=== PATIENT | male | born 1975 | race Caucasian/White ===

== ENCOUNTER 2018-01-20 02:33 | Emergency (ER) | payer MEDICAID, SELFPAY ==
[2018-01-20 02:40] VITALS: BP 129/87; PULSE 101; RESP 18; TEMP 36.5; O2SAT 98
--- NOTE | 2018-01-20 03:33 | W.ED.GENAD ---
Discharge Plan Disposition Patient Disposition: HOME Discharge Details Chief Complaint: GenMedical Clinical Impression: Tongue inflammation Primary Care Provider: Shane Colin ED Provider: Kb Montoya Home Meds and New Rx's Prescriptions: No Action No Known Home Meds RF: 0 Discharge Instructions Additional Instructions: Please use ibuprofen or tylenol for pain. Please contact your primary care physician to arrange follow-up. Return to the ER for any worsening or new concerning symptoms. Referrals: Shane Colin [Primary Care Provider] - Medical Decision Making 42-year-old male here with mild tongue inflammation. No significant swelling. Airway intact. Patient requesting tramadol. I advised that this was not appropriate for current condition. Plan to continue ibuprofen. I will also give him Tylenol. Patient notes no allergy to Tylenol. We will also provide viscous lidocaine swish and spit. HPI General Date/Time Provider Initiated Documentation: 01/20/18 02:44. Limitations to Documentation: no limitations. Information obtained by: patient. HPI Narrative: 42-year-old male presents with chief complaint of tongue inflammation. He notes that over the past 2 days he has had discomfort of his tongue that feels like it is cut. He specifically notes trouble swallowing because of pain. Patient has had no known injury. Patient has taken ibuprofen for this. Patient is requesting additional analgesia and specifically tramadol. Related Data Home Medications Medication Instructions Recorded Confirmed Unknown [No Known Home Meds] 01/20/18 01/20/18 Allergies Allergy/AdvReac Type Severity Reaction Status Date / Time acetaminophen [From Percocet] Allergy Verified 06/09/17 22:06 oxycodone HCl [From Percocet] Allergy Verified 06/09/17 22:06 General Stated Complaint: GenMedical MALIA: 4 Review of Systems Constitutional Denies fever(s) ENT Reports as per HPI, Denies change in voice, Denies sore throat and Denies throat swelling Allergic/Immunologic Denies throat swelling [facility] Social History Smoking/Tobacco Use Status: Current every day Exam Const General: cooperative HENMT Mouth: abnormal tongue (mild redness with prominent papillae) Throat: posterior oropharynx normal Neck Neck: trachea midline, supple and no lymphadenopathy noted Resp Effort & Inspection: normal respiratory effort Auscultation: clear to auscultation bilaterally Cardio Rate: regular rate Rhythm: regular rhythm Course Vital Signs Temperature 36.5 C 01/20/18 02:40 Pulse 101 H 01/20/18 02:40 Respiratory Rate 18 01/20/18 02:40 Blood Pressure 129/87 01/20/18 02:40 Pulse Oximetry 98 01/20/18 02:40 Temperature 36.5 C 01/20/18 02:40 Temperature Source Temporal Artery Scan 01/20/18 02:40 Pulse 101 H 01/20/18 02:40 Respiratory Rate 18 01/20/18 02:40 Respiratory Effort 01/20/18 02:40 Blood Pressure 129/87 01/20/18 02:40 Blood Pressure Position Sitting 01/20/18 02:40 Pulse Oximetry 98 01/20/18 02:40 Oxygen Delivery Method Room Air 01/20/18 02:40 Oxygen Flow Rate 0 01/20/18 02:40
[2018-01-20] MEDS: Acetaminophen 325 MG TAB 650 MG PO ×2 (03:45→03:46)
--- NOTE | 2018-01-20 03:46 | ED.GENADUL_ITS ---
Discharge Plan Disposition Patient Disposition: HOME Discharge Details Chief Complaint: GenMedical Clinical Impression: Tongue inflammation Primary Care Provider: Shane Colin ED Provider: Kb Montoya Home Meds and New Rx's Prescriptions: No Action No Known Home Meds RF: 0 Discharge Instructions Additional Instructions: Please use ibuprofen or tylenol for pain. Please contact your primary care physician to arrange follow-up. Return to the ER for any worsening or new concerning symptoms. Referrals: Shane Colin [Primary Care Provider] - Medical Decision Making 42-year-old male here with mild tongue inflammation. No significant swelling. Airway intact. Patient requesting tramadol. I advised that this was not appropriate for current condition. Plan to continue ibuprofen. I will also give him Tylenol. Patient notes no allergy to Tylenol. We will also provide viscous lidocaine swish and spit. HPI General Date/Time Provider Initiated Documentation: 01/20/18 02:44 . Limitations to Documentation: no limitations . Information obtained by: patient . HPI Narrative: 42-year-old male presents with chief complaint of tongue inflammation. He notes that over the past 2 days he has had discomfort of his tongue that feels like it is cut. He specifically notes trouble swallowing because of pain. Patient has had no known injury. Patient has taken ibuprofen for this. Patient is requesting additional analgesia and specifically tramadol. Related Data Home Medications Medication Instructions Recorded Confirmed Unknown [No Known Home Meds] 01/20/18 01/20/18 Allergies Allergy/AdvReac Type Severity Reaction Status Date / Time acetaminophen [From Percocet] Allergy Verified 06/09/17 22:06 oxycodone HCl [From Percocet] Allergy Verified 06/09/17 22:06 General Stated Complaint: GenMedical MALIA: 4 Review of Systems Constitutional Denies fever(s) ENT Reports as per HPI, Denies change in voice, Denies sore throat and Denies throat swelling Allergic/Immunologic Denies throat swelling [facility] Social History Smoking/Tobacco Use Status: Current every day Exam Const General: cooperative HENMT Mouth: abnormal tongue (mild redness with prominent papillae) Throat: posterior oropharynx normal Neck Neck: trachea midline, supple and no lymphadenopathy noted Resp Effort & Inspection: normal respiratory effort Auscultation: clear to auscultation bilaterally Cardio Rate: regular rate Rhythm: regular rhythm Course Vital Signs Temperature 36.5 C 01/20/18 02:40 Pulse 101 H 01/20/18 02:40 Respiratory Rate 18 01/20/18 02:40 Blood Pressure 129/87 01/20/18 02:40 Pulse Oximetry 98 01/20/18 02:40 Temperature 36.5 C 01/20/18 02:40 Temperature Source Temporal Artery Scan 01/20/18 02:40 Pulse 101 H 01/20/18 02:40 Respiratory Rate 18 01/20/18 02:40 Respiratory Effort 01/20/18 02:40 Blood Pressure 129/87 01/20/18 02:40 Blood Pressure Position Sitting 01/20/18 02:40 Pulse Oximetry 98 01/20/18 02:40 Oxygen Delivery Method Room Air 01/20/18 02:40 Oxygen Flow Rate 0 01/20/18 02:40
[2018-01-20] MEDS: Lidocaine 2% Viscous 15 ML CUP PO (03:47)
== END 2018-01-20 03:57 | disposition home or self-care (01) ==
LOC: ER 03:57
PROVIDERS: Emergency Provider Student in an Organized Health Care Education/Training Program; PCP Family Medicine
DX: K14.6 Glossodynia (principal); R13.10 Dysphagia, unspecified
CPT/HCPCS: 99282

== ENCOUNTER 2019-03-19 11:05 | Emergency (ER) | payer MEDICAID, SELFPAY ==
--- NOTE | 2019-03-19 11:08 | ED.GENADUL_ITS ---
Discharge Plan Disposition Patient Disposition: HOME Condition: Good Discharge Details Chief Complaint: Orthopedic Clinical Impression: Acute pain of left shoulder, Biceps tendinitis Primary Care Provider: Shane Colin ED Provider: Gracie Oconnell Home Meds and New Rx's Prescriptions: New diclofenac potassium 50 mg tablet 50 mg PO TID PRN (Reason: pain) Qty: 15 RF: 0 Discharge Instructions Instructions: Tendinitis (ED), Shoulder Pain (ED) Additional Instructions: Encourage hydration. Use the diclofenac as prescribed to help with your pain. Please not take ibuprofen or other anti-inflammatory will take this medication. You may augment this with Tylenol, do not exceed 4000 mg of Tylenol daily. You may continue to use the sling while pain persists but take the arm out of the sling at least 5-6 times daily to use perform the passive range of motion exercises as discussed. Encourage rest, ice, elevation. You have an appointment with your primary care physician on March 31 at 9:30 AM for reevaluation. If you are unable to make this appointment please call to reschedule. Physical therapy referral is attached, please see numbers for local providers and contact to schedule follow-up appointment. If you develop fever/chills, increased pain or other new/worsening symptoms please seek care urgently once again. Stand Alone Forms: Physical Therapy Referral, Work Release Referrals: Shane Colin [Primary Care Provider] - 03/31/19 9:30 am Discharge Data Discharge Date/Time-TO BE ENTERED AT DEPARTURE: 03/19/19 12:07 Medical Decision Making Patient is a 43 year old RHD male presenting today with c/c of left shoulder pain. States that yesterday he was lifting a water heater and developed anterior superior left shoulder pain shortly after. Denies fall or abrupt trauma to the shoulder. 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 He denies any numbness or tingling. Denies any pain that radiates from the arm. Denies any pain in the elbow, wrist, hand. Denies any chest pain, shortness of breath. No fevers or chills. On exam, patient is moving his left arm slowly. In particular, he has discomfort with forward elevation and is only able to forward elevate to approximately 60 degrees. External and internal rotation are intact. Pain is maximal over the biceps tendon, no Dixon deformity is noted. Also has pain with palpation of the AC joint although I note no step-off or blottable mobility of the left clavicle. Will obtain x-ray. He has taken Tylenol and ibuprofen today. Will place a Lidoderm patch over the area. FINDINGS: No fracture or dislocation is seen. There is mild spurring at the AC joint and inferior glenoid. IMPRESSION: Mild degenerative changes. Discussed these findings with the patient. Encourage gentle range of motion to help her events of his capsulitis. Passive range of motion exercises were demonstrated for the patient. Encouraged to continue with Tylenol and/or ibuprofen as needed for discomfort. Patient is requesting sling to help with acute discomfort but he will remove this multiple times a day again to work on range of motion. Pain is maximal over the biceps tendon. I advised this most consistent with biceps tendinitis. I encouraged that he try to hold off on any heavy lifting as this may increase his discomfort. Patient was unclear if he had current primary care, I did contact a local primary care office where he was seen last was able to make an appointment for him for reevaluation. He was given strict return precautions. Also refer the patient to physical therapy to help with discomfort. All questions concerns were addressed and he is in agreement this plan. HPI General Mode of arrival: ambulatory . Date/Time Provider Initiated Documentation: 03/19/19 11:08 . Limitations to Documentation: no limitations . Information obtained by: patient and RN notes reviewed . History of Present Illness 43 year old M presents to the emergency department with the chief complaint of left shoulder pain, described as moderate, with intensity rated at 7. Quality is described as aching, and is localized to the left and upper extremity. Patient reports no radiation. Patient started experiencing this day(s) (1) and it has been constant. Immobilization improves symptom(s), Movement worsens symptoms . Patient notes no other symptoms.. Patient did receive the following treatments prior to arrival, NSAID and other (tylenol) Related Data Home Medications Medication Instructions Recorded Confirmed diclofenac potassium 50 mg PO TID PRN #15 tab 03/19/19 Previous Rx's Medication Instructions Recorded diclofenac potassium 50 mg PO TID PRN #15 tab 03/19/19 Allergies Allergy/AdvReac Type Severity Reaction Status Date / Time acetaminophen [From Percocet] Allergy Verified 01/20/18 04:24 oxycodone HCl [From Percocet] Allergy Verified 01/20/18 04:24 General MALIA: 4 Review of Systems Constitutional Constitutional: Reports as per HPI, Denies chills, Denies fever(s), Denies headache(s) and Denies weakness ENT Ears, Nose, Mouth, and Throat: Denies headache(s) Cardiovascular Cardiovascular: Reports as per HPI Respiratory Respiratory: Reports as per HPI and Denies cough Musculoskeletal Musculoskeletal: Reports as per HPI and Denies tingling Integumentary/Breasts Skin/Breast: Reports as per HPI, Denies rash and Denies wounds Neurologic Neurologic: Reports as per HPI, Denies headache(s), Denies tingling, Denies paresthesias and Denies weakness [facility] Social History Smoking/Tobacco Use Status: Current every day Alcohol Intake: never Drug use: Never Substance use type: does not use Do you feel safe at home: Yes Do you feel safe in your relationship?: Yes Exam Const General: cooperative, healthy appearing, comfortable, no acute distress, well developed and well groomed Nutritional Appearance: average body habitus and well nourished Orientation: alert and awake Resp Effort & Inspection: normal respiratory effort, able to speak in complete sentences and no respiratory distress Cardio Rate: regular rate Rhythm: regular rhythm Skin General skin exam: no rashes or lesions noted Lesions: no lesions Rashes: no rashes Trauma: no lacerations or abrasions Neuro General: alert and awake Cognition: normal cognition Speech: speech normal Gait: normal gait Motor: muscle tone normal throughout Sensory Exam: no sensory deficits noted Extrem General: normal to inspection, abnormal ROM, normal capillary refill, no joint enlargement and normal gait Left upper extremity: normal to inspection, normal capillary refill, no joint enlargement, shoulder/upper arm Details: inspection abnormal, tenderness Location: of the A-C joint and over the biceps tendon, axillary nerve sensory function normal and abnormal ROM (FE to 60*, full IR and ER); no swelling, ROM limited, no abrasions, no lacerations, no ecchymosis, no crepitus, no foreign bodies, no penetrating wound, no deformity and no unsual warmth, elbow/forearm Details: normal to inspection, normal ROM and distal pulses intact; no tenderness, no swelling, no unusual warmth, no abrasions, no lacerations, no ecchymosis, no crepitus and no deformity, wrist Details: normal to inspection, normal ROM, normal vascular exam and radial pulse present; no tenderness and no swelling and hand Details: normal to inspection, normal capillary refill, neuromotor exam normal and neurosensory exam normal; ROM limited and no edema Psych Appearance: grossly normal and well kempt Mental Status: mental status grossly normal Speech and Movement: speech and movement normal
[2019-03-19 11:10] VITALS: BP 140/95; PULSE 98; RESP 16; TEMP 36.6; O2SAT 99
--- NOTE | 2019-03-19 11:21 | DI.RAD_ITS ---
EXAM: XR SHOULDER LT COMPLETE 2+V INDICATION: anterior pain after lifting. COMPARISON: LEFT RIBS TO INCLUDE CXR from 05/05/2014 TECHNIQUE: 2D digital imaging was performed. FINDINGS: No fracture or dislocation is seen. There is mild spurring at the AC joint and inferior glenoid. IMPRESSION: Mild degenerative changes.
[2019-03-19] MEDS: Lidocaine 5% Patch 1 PATCH TP (11:49)
== END 2019-03-19 12:07 | disposition home or self-care (01) ==
PROVIDERS: Emergency Provider Physician Assistant; PCP Family Medicine
DX: M75.22 Bicipital tendinitis, left shoulder (principal); M25.512 Pain in left shoulder; X50.0XXA Overexertion from strenuous movement or load, initial encounter
CPT/HCPCS: 99283; 73030; L3650

== ENCOUNTER 2021-11-15 14:52 | Emergency (ER) | payer MEDICAID, SELFPAY ==
[2021-11-15 15:03] VITALS: BP 134/80; PULSE 73; RESP 18; TEMP 36.7; O2SAT 97
--- NOTE | 2021-11-15 16:45 | RT.EKG_ITS ---
APPROVED REPORT Exam: Resting ECG Reason for Exam: bilat leg swelling Patient Location: E HR:67 bpm ECG Measurements Heart Rate 67 AXIS GA 170 P 18 QRSd 84 QRS 13 QT 386 T 25 QTc 408 Conclusion Sinus rhythm...normal P axis, V-rate 60- 99 sinus rhythm, normal axis, normal intervals, non ischemic
--- NOTE | 2021-11-15 16:45 | DI.RAD_ITS ---
Exam(s) XR CHEST 2V PA LATERAL EXAM: XR CHEST 2V PA LATERAL CLINICAL HISTORY: bilat leg swelling. TECHNIQUE: 2D digital imaging was performed. COMPARISON: CR LEFT RIBS TO INCLUDE CXR from 05/05/2014 FINDINGS: 2 views: Heart size is normal. The mediastinum is not widened. Lungs are clear. No infiltrates nor pleural effusions. IMPRESSION: No acute pulmonary findings. DATA REPOSITORY: RADIATION DOSE DELIVERED:
--- NOTE | 2021-11-15 16:47 | PDOC.ERCMPRO ---
- If Service Date Differs Date of service: 11/15/21 Time of Service: 16:48 Care Management Progress Note SBIRT screen: positive for nicotine. Pt states a desire to quit smoking and was provided with resources for tobacco cessation. Pt reports limited cannabis use before bed at night to help with sleep but reports no negative effects or dependency symptoms. We discussed his use in this context and Pt was encouraged to follow up with his PCP regarding medicinal marijauana use, as he states he would like to register as medical marijuana user. Pt reports no other substance use or mental health symptoms.
--- NOTE | 2021-11-15 17:01 | W.ED.GENAD ---
Discharge Plan Disposition Patient Disposition: HOME Condition: Stable Discharge Details Clinical Impression: Bilateral cellulitis of lower leg Primary Care Provider: Shane Colin ED Provider: Jaxon Smith Home Meds and New Rx's Prescriptions: New cephalexin 500 mg capsule 500 mg PO QID 10 Days Qty: 40 0RF Discharge Instructions Instructions: Cellulitis (ED) Additional Instructions: Keflex as directed. Rest, elevate, warm compresses every 2 hours for 20 minutes. I am setting you up for an outpatient ultrasound of your left lower extremity tomorrow to further evaluate for potential potential DVT. Please contact the radiology department in the morning to set this appointment up, he will sign into the ER after the ultrasound for the results. Please watch for new or worsening symptoms and return to the ER for any concerns. Please contact your primary care provider to make them aware of your ER visit and need for outpatient reevaluation. Discharge Data Discharge Date/Time-TO BE ENTERED AT DEPARTURE: 11/15/21 20:09 Medical Decision Making 46-year-old gentleman who denies any significant past medical history presents for several day history of bilateral lower lower leg swelling, pain, redness, left slightly worse than the right. Clinically this appears to be more of a cellulitis picture but given this is his first presentation, would like to rule out CHF, kidney failure, DVT, etc. Will obtain IV access, routine screening laboratory values over the patient up for an ultrasound tomorrow morning. Laboratory values are grossly unremarkable, no leukocytosis, troponin less than 50, BNP 91, renal function normal, electrolytes unremarkable. Discussed benign work-up with patient thus far. Will initiate oral Keflex therapy for ultrasound tomorrow. Standard discharge and return precautions were provided. Patient understands, is agreeable to this plan, and has no additional questions or concerns upon discharge. This documentation was generated using [employer] system, please disregard any oddities of phrase or misspellings. Medical Records Medical records reviewed: Yes I reviewed the patient's medical records. Imaging Data Radiologic Study: Attestation: I personally reviewed and interpreted this imaging study as follows: Imaging: X-Ray Radiologist's impression: PROCEDURE INFORMATION: Exam: XR Chest Exam date and time: 11/15/2021 6:49 PM Age: 46 years old Clinical indication: Other: Leg swelling, chest pain, SOB TECHNIQUE: Imaging protocol: Radiologic exam of the chest. Views: 2 views. COMPARISON: CR XR SHOULDER LT COMPLETE 2+V 03/19/2019 11:21 AM FINDINGS: Lungs: The lungs are clear without infiltrate or edema. Pleural spaces: No pleural effusion or pneumothorax. Heart/Mediastinum: The cardiac silhouette is normal in size. Bones/joints: The distal right clavicle is truncated. This suggests sequela of prior injury or prior surgery. No acute osseous abnormality. IMPRESSION: No acute findings Lab Data Lab results reviewed: Yes I reviewed the patient's lab results. Labs: Laboratory Tests Range/Units 11/15/21 11/15/21 17:14 17:14 WBC (4.4-10.8) 10^3/uL 10.13 RBC (4.36-5.78) 10^6/uL 5.04 Hgb (13.5-17.5) g/dL 15.3 Hct (40.0-50.0) % 43.4 MCV (80-95) fL 86 MCH (27.0-33.0) pg 30.4 MCHC (32.0-36.0) % 35.3 RDW (11.8-14.1) % 12.4 Plt Count (130-400) 10^3/uL 253 MPV (8.0-11.0) fL 9.4 Immature Gran % 0.4 Neutrophils % 61.1 Lymphocytes % 24.4 Monocytes % 9.8 Eosinophils % 3.3 Basophils % 1.0 Nucleated RBC % (0.0-0.3) % 0.0 Absolute Neutrophils (1.2-6.7) 10^3/uL 6.20 Absolute Lymphocytes (1.2-3.4) 10^3/uL 2.47 Absolute Monocytes (0.1-0.8) 10^3/uL 0.99 H Absolute Eosinophils (0.0-0.7) 10^3/uL 0.33 Absolute Basophils (0.0-0.2) 10^3/uL 0.10 Sodium (136-145) mmol/L 140 Potassium (3.5-5.1) mmol/L 3.9 Chloride (98-107) mmol/L 103 Carbon Dioxide (21.0-32.0) mmol/L 29.1 Anion Gap (3-11) mmol/L 7.9 BUN (7-18) mg/dL 13 Creatinine (0.70-1.30) mg/dL 0.9 Estimated GFR/1.73 m2 (mL/min/1.73m2) >= 60.00 Glucose (74-106) mg/dL 97 Calcium (8.5-10.1) mg/dL 8.6 Total Bilirubin (0.2-1.0) mg/dL 0.4 AST (15-37) U/L 30 ALT (16-63) U/L 26 Alkaline Phosphatase (46-116) U/L 122 H Troponin I (<or=60) ng/L < 50 NT-Pro-B Natriuret Pep (<300) pg/mL 91 Total Protein (6.4-8.2) g/dL 8.0 Albumin (3.4-5.0) g/dL 4.0 Lipase (73-393) U/L 26 ECG Data Attestation: I personally reviewed and interpreted this ECG (s) as follows: Interpretation: Sinus rhythm, ventricular rate of 67, no STEMI. HPI General Mode of arrival: ambulatory. Date/Time Provider Initiated Documentation: 11/15/21 16:25. Limitations to Documentation: no limitations. Information obtained by: patient. HPI Narrative: This is a 46-year-old gentleman, current smoker, denies significant past medical history, presenting for bilateral lower leg swelling that he states has been present for a couple of days but worse this morning, left slightly worse than right. Reports that his legs feel tight, mild to moderate discomfort, nothing makes it worse or better. He denies recent illness, trauma, chest pain, shortness of breath, symptoms like this previously. Denies history of DVT. He has not taken any medication for his symptoms. Related Data Home Medications Medication Instructions Recorded Confirmed cephalexin 500 mg capsule 500 mg PO QID 10 days #40 caps 11/15/21 11/16/21 Previous Rx's Medication Instructions Recorded cephalexin 500 mg capsule 500 mg PO QID 10 days #40 caps 11/15/21 Allergies Allergy/AdvReac Type Severity Reaction Status Date / Time acetaminophen [From Percocet] Allergy Verified 11/16/21 13:12 oxycodone HCl [From Percocet] Allergy Verified 11/16/21 13:12 General Stated Complaint: Cellulitis MALIA: 3 Review of Systems Constitutional Constitutional: Denies fever(s) and Denies weakness Cardiovascular Cardiovascular: Denies chest pain and Denies dyspnea Respiratory Respiratory: Denies cough and Denies dyspnea Musculoskeletal Musculoskeletal: Denies arthralgias, Denies numbness and Denies tingling Integumentary/Breasts Skin/Breast: Reports rash Neurologic Neurologic: Denies numbness, Denies tingling and Denies weakness Hematologic/Lymphatic Hematologic/Lymphatic: Denies easy bleeding and Denies easy bruising PFSH All Active Problems (Updated 11/15/21 @ 19:50 by PAPO Nino) Bilateral cellulitis of lower leg (Acute) Social History Smoking/Tobacco Use Status: Current every day Smoking risk assessment performed?: Yes Alcohol Intake: never Drug use: Never Substance use type: does not use Do you feel safe at home: Yes Do you feel safe in your relationship?: Yes Exam Const General: cooperative, healthy appearing, comfortable and no acute distress Orientation: alert and awake HENMT Head: normal to inspection, normocephalic and atraumatic Face and sinus: normal facial exam Mouth: moist mucous membranes Eyes Conjunctivae: conjunctivae normal Neck Neck: normal visual inspection, full ROM, trachea midline and supple Resp Effort & Inspection: normal respiratory effort and able to speak in complete sentences Auscultation: clear to auscultation bilaterally Cardio Rate: regular rate Rhythm: regular rhythm Skin General skin exam: erythema Neuro General: patient alert, patient awake, moves all extremities and no focal motor deficits Cognition: normal cognition Speech: speech normal Gait: normal gait Sensory Exam: no sensory deficits noted Extrem General: full ROM and capillary refill normal Other: Bilateral distal lower extremities, left leg slightly worse than the right, noncircumferential erythema, or warmth, tenderness, 1-2 nonpitting edema. Skin is intact. Normal pedal pulses. Normal capillary refill. Negative Homans' sign. Psych Appearance: grossly normal Mental Status: mental status grossly normal Course Vital Signs Vital signs: Vital Signs Temperature 36.7 C 11/15/21 15:03 Pulse 73 11/15/21 15:03 Respiratory Rate 18 11/15/21 15:03 Blood Pressure 134/80 11/15/21 15:03 Pulse Oximetry 97 11/15/21 15:03 Temperature 36.7 C 11/15/21 15:03 Temperature Source Temporal Artery Scan 11/15/21 15:03 Pulse 73 11/15/21 15:03 Respiratory Rate 18 11/15/21 15:03 Blood Pressure 134/80 11/15/21 15:03 Blood Pressure Position Sitting 11/15/21 15:03 Pulse Oximetry 97 11/15/21 15:03 Oxygen Delivery Method Room Air 11/15/21 15:03 Oxygen Flow Rate 0 11/15/21 15:03
[2021-11-15 17:21] LABS: Abs Immature Grans 0.04 10^3/uL (0.0-0.06); Absolute Eosinophil Count 0.33 10^3/uL (0.0-0.7); Absolute Lymphocyte Count 2.47 10^3/uL (1.2-3.4); Absolute Monocyte Count 0.99 10^3/uL (0.1-0.8); Eosinophils % 3.3; HCT 43.4 % (40.0-50.0); HGB 15.3 g/dL (13.5-17.5); Immature Grans % 0.4; Lymphocytes % 24.4; MCH 30.4 pg (27.0-33.0); MCHC 35.3 % (32.0-36.0); MCV 86 fL (80-95); MPV 9.4 fL (8.0-11.0); Monocytes % 9.8; Neutrophils % 61.1; Platelet Count 253 10^3/uL (130-400); RBC 5.04 10^6/uL (4.36-5.78); RDW 12.4 % (11.8-14.1); RDW-SD 39.2 fL; WBC 10.13 10^3/uL (4.4-10.8)
[2021-11-15 17:51] LABS: ALT 26 U/L (16-63); AST 30 U/L (15-37); Alkaline Phosphatase 122 U/L (46-116); Anion Gap 7.9 mmol/L (3-11); BUN 13 mg/dL (7-18); Bilirubin, Total 0.4 mg/dL (0.2-1.0); CO2 29.1 mmol/L (21.0-32.0); CREATININE 0.9 mg/dL (0.70-1.30); Calcium 8.6 mg/dL (8.5-10.1); Chloride 103 mmol/L (98-107); Glucose 97 mg/dL (74-106); Lipase 26 U/L (73-393); NT-proBNP 91 pg/mL (<300); Potassium 3.9 mmol/L (3.5-5.1); Sodium 140 mmol/L (136-145); Troponin I < 50 ng/L (<or=60)
--- NOTE | 2021-11-15 19:20 | DI.VRAD_ITS ---
PROCEDURE INFORMATION: Exam: XR Chest Exam date and time: 11/15/2021 6:49 PM Age: 46 years old Clinical indication: Other: Leg swelling, chest pain, SOB TECHNIQUE: Imaging protocol: Radiologic exam of the chest. Views: 2 views. COMPARISON: CR XR SHOULDER LT COMPLETE 2+V 03/19/2019 11:21 AM FINDINGS: Lungs: The lungs are clear without infiltrate or edema. Pleural spaces: No pleural effusion or pneumothorax. Heart/Mediastinum: The cardiac silhouette is normal in size. Bones/joints: The distal right clavicle is truncated. This suggests sequela of prior injury or prior surgery. No acute osseous abnormality. IMPRESSION: No acute findings. Dictated and Authenticated by: Selena Bauer MD. Ordering:OSMIN Coates MD
[2021-11-15 20:07] VITALS: BP 148/89; PULSE 75; RESP 15; O2SAT 97
== END 2021-11-15 20:09 | disposition home or self-care (01) ==
PROVIDERS: Emergency Provider Physician Assistant; PCP Family Medicine
DX: L03.115 Cellulitis of right lower limb (principal); L03.116 Cellulitis of left lower limb; F17.200 Nicotine dependence, unspecified, uncomplicated
CPT/HCPCS: 80053; 83690; 93005; 99283; 71046; 83880; 84484; 85025; 93010; 99284

== ENCOUNTER → 2021-11-16 12:48 | Outpatient (CLI) | payer MEDICAID, SELFPAY ==
--- NOTE | 2021-11-16 | DI.US_ITS ---
Exam(s) US LOWER EXTREMITY VENOUS LT EXAM: US LOWER EXTREMITY VENOUS LT CLINICAL HISTORY: PAIN, ERYTHEMA, LLE TECHNIQUE: Grayscale, color, and doppler imaging of the deep venous system of the left lower extremi ty was performed. COMPARISON: No exams were available for comparison FINDINGS: There is no evidence of intraluminal thrombus and there is normal compression and augmentation demons trated within the common femoral vein, femoral vein, and popliteal vein. In the ipsilateral calf the interrogated veins also exhibit normal compression/ augmentation properti es. The ipsilateral saphenofemoral junction is patent. Incidentally noted is what appears to be a 5 x 1 x 2 cm fluid collection in the medial aspect of the upper left thigh IMPRESSION: 1. No evidence of DVT in the left lower extremity. 2. There is a 5 x 1 x 2 cm fluid collection in the medial aspect of the left upper thigh. If clinic ally indicated this could be further studied CT or MRI. DATA REPOSITORY:
== END ==
PROVIDERS: PCP Family Medicine; Visit Provider Physician Assistant
DX: R93.6 Abnormal findings on diagnostic imaging of limbs (principal)
CPT/HCPCS: 93971

== ENCOUNTER 2021-11-16 12:58 | Emergency (ER) | payer MEDICAID, SELFPAY ==
[2021-11-16 13:11] VITALS: BP 126/67; PULSE 79; RESP 16; TEMP 36.7; O2SAT 94
== END 2021-11-16 13:32 ==
LOC: ER 13:20
PROVIDERS: PCP Family Medicine
DX: Z53.21 Procedure and treatment not carried out due to patient leaving prior to being seen by health care provider (principal)

== ENCOUNTER 2022-06-14 10:11 | Emergency (ER) | payer MEDICAID, SELFPAY ==
[2022-06-14 10:21] VITALS: BP 154/81; PULSE 69; RESP 18; TEMP 36.2; O2SAT 100
--- NOTE | 2022-06-14 10:45 | DI.CT_ITS ---
Exam(s) CT UPPER EXTREMITY RT W EXAM: CT UPPER EXTREMITY RT W CLINICAL HISTORY: hand with bullae, diffuse edema, significant pain TECHNIQUE: Imaging Protocol: Axial computed tomography images with coronal and sagittal reformatted images were created and reviewed. CONTRAST MATERIAL: Intravenous: Omnipaque 350 Contrast volume:100 ml Contrast route:IV - COMPARISON: No exams were available for comparison FINDINGS: Bones: The osseous structures and articular surfaces are intact. There is no evidence of fracture or dislocation. Bony alignment is satisfactory. No osteomyelitic changes are identified. There is no ev idence of joint space narrowing or cystic degeneration seen. No lytic or sclerotic lesions are identi fied. Soft Tissues: Severe edema in the dorsal subcutaneous fat from the wrist through the level of the me tacarpophalangeal joints. Severe edema and swelling of the musculature of the thenar eminence is wel l as interosseous muscles with relative sparing of the musculature relating to the 5th finger. The t endons appear intact. There is no soft tissue gas or drainable abscess collection. IMPRESSION: Severe subcutaneous edema along the dorsum of the hand. Severe muscle edema greatest at the thenar e minence. Findings called to Lindy Rosas, emergency department provider. RADIATION DOSE DELIVERED: 196.91mGy.cm Total DLP DATA REPOSITORY: All CT scans at this facility are submitted to the National Radiology Data Registry (NRDR) Dose Index Registry (DIR) with the [employer] ([employer]). RADIATION OPTIMIZATION: All CT scans at this facility use at least one of these dose optimization te chniques: automated exposure control; mA and/or kV adjustment per patient size (includes targeted exa ms where dose is matched to clinical indication); or iterative reconstruction.
[2022-06-14 11:06] LABS: Abs Immature Grans 0.05 10^3/uL (0.0-0.06); Absolute Basophil Count 0.06 10^3/uL (0.0-0.2); Absolute Eosinophil Count 0.26 10^3/uL (0.0-0.7); Absolute Lymphocyte Count 2.23 10^3/uL (1.2-3.4); Absolute Monocyte Count 0.64 10^3/uL (0.1-0.8); Absolute Neutrophil Count 5.11 10^3/uL (1.2-6.7); Basophils % 0.7; Eosinophils % 3.1; HCT 49.8 % (40.0-50.0); HGB 17.5 g/dL (13.5-17.5); Immature Grans % 0.6; Lymphocytes % 26.7; MCH 30.5 pg (27.0-33.0); MCHC 35.1 % (32.0-36.0); MCV 87 fL (80-95); MPV 9.3 fL (8.0-11.0); Monocytes % 7.7; Neutrophils % 61.2; Platelet Count 247 10^3/uL (130-400); RBC 5.73 10^6/uL (4.36-5.78); RDW 13.3 % (11.8-14.1); RDW-SD 40.3 fL; WBC 8.35 10^3/uL (4.4-10.8)
[2022-06-14 11:07] LABS: Lactate 1.2 mmol/L (0.6-1.4)
--- NOTE | 2022-06-14 11:14 | NUR.NOTE ---
Nursing Note: bobcat driver/labor in room collecting 2nd set of BC at this time.
[2022-06-14 11:29] LABS: ALT 143 U/L (16-63); AST 162 U/L (15-37); Albumin 3.9 g/dL (3.4-5.0); Alkaline Phosphatase 124 U/L (46-116); Anion Gap 9.4 mmol/L (3-11); BUN 11 mg/dL (7-18); Bilirubin, Total 0.8 mg/dL (0.2-1.0); C-Reactive Protein 1.45 mg/dL (0.0-0.3); CO2 27.6 mmol/L (21.0-32.0); CREATININE 1.1 mg/dL (0.70-1.30); Calcium 9.1 mg/dL (8.5-10.1); Chloride 104 mmol/L (98-107); Estimated GFR 83.32 (mL/min/1.73m2); Glucose 95 mg/dL (74-106); Potassium 3.9 mmol/L (3.5-5.1); Sodium 141 mmol/L (136-145); Total Protein 8.1 g/dL (6.4-8.2)
[2022-06-14] MEDS: PIPERACILLIN/TAZO 3.375 GM in Normal Saline 50 ML IVPB (11:34)
[2022-06-14] MEDS: MORPHine 4 MG/ML SYR IVP (11:34)
[2022-06-14 12:32] LABS: Creatine Kinase 4040 U/L (39-308)
[2022-06-14] MEDS: Omnipaque 350 MG/ML 500 ML BTL-Imaging package IJ (12:33)
[2022-06-14] MEDS: Normal Saline - Diluent 50 ML VIAL IJ (12:34)
[2022-06-14] MEDS: Lactated Ringers 1,000 ML 1000 ML IV (12:55)
[2022-06-14 13:00] VITALS: BP 120/87; PULSE 66; RESP 16; O2SAT 96
--- NOTE | 2022-06-14 13:30 | DI.RAD_ITS ---
Exam(s) XR HAND RT COMPLETE EXAM: XR HAND RT COMPLETE CLINICAL HISTORY: edema to hand, pain. TECHNIQUE: 2D digital imaging was performed. Three views. COMPARISON: No exams were available for comparison FINDINGS: Marked soft tissue swelling involving the dorsum of the hand, thenar eminence as well as extending in to the fingers, greater at the thumb and 2nd finger. No gas collections. No evidence of fracture. No suspicious bony lesions are detected degenerative changes. IMPRESSION: Severe soft tissue swelling. DATA REPOSITORY: RADIATION DOSE DELIVERED:
--- NOTE | 2022-06-14 14:07 | W.ORTHOCONSU ---
Assessment and Plan Assessment and plan (1) Myositis of right hand: Status: Acute Assessment and plan: 46-year-old male with right hand edema, skin sloughing/wounds, and myositis due to unknown cause Denies any hand injury at all. Denies medical problems. Regular smoker. Has slowly progressed over the past few days. No apparent infection. Afrile, normal WBC, mildly elevated CRP. About the same as yesterday so not rapidly progressing. Not consistent with necrotizing fasciitis. LRINEC score 0. Edema is pitting, as best I can tell compartments are compressible, and patient readily demonstrates moderate hand finger and thumb flexion extension without discomfort. Sensation largely intact except mildly decreased distal thumb and index fingers. Serous drainage without purulence. No erythema or ascending streaking. 2+ radial and ulnar pulses. Brisk cap refill. Confusing case. Does not seem to need surgery to release either infection or compartments at this time. Recommend close monitoring. Strict elevation. Encourage range of motion all fingers and thumb. Serial vitals. Repeat inflammatory markers: CBC with differential, ESR, and CRP. Potential medical admission, IV fluid hydration, and trend CK. Could consider steroids for autoimmune/inflammatory problem. Also, consider medical causes of vasculitis, myositis, and potential transfer to tertiary care facility for for vascular and/or hand specialist. PFSH All Active Problems (Updated 06/14/22 @ 14:32 by PAPO Vinson) Myositis of right hand (Acute) Social History Smoking/Tobacco Use Status: Current every day Tobacco Type: cigarettes Smoking risk assessment performed?: Yes Alcohol Intake: never Drug use: Never Substance use type: does not use Do you feel safe at home: Yes Do you feel safe in your relationship?: Yes Results Last Vital Signs Temp 97.1 F L 06/14/22 10:21 Pulse 66 06/14/22 13:00 Resp 16 06/14/22 13:00 BP 120/87 06/14/22 13:00 Pulse Ox 96 06/14/22 13:00 Labs 06/14/22 10:50 06/14/22 10:50 Labs: Laboratory Results - last 24 hr 06/14/22 06/14/22 06/14/22 10:50 10:50 10:50 WBC 8.35 RBC 5.73 Hgb 17.5 Hct 49.8 MCV 87 MCH 30.5 MCHC 35.1 RDW 13.3 Plt Count 247 MPV 9.3 Immature Gran % 0.6 Neutrophils % 61.2 Lymphocytes % 26.7 Monocytes % 7.7 Eosinophils % 3.1 Basophils % 0.7 Nucleated RBC % 0.0 Absolute Neutrophils 5.11 Absolute Lymphocytes 2.23 Absolute Monocytes 0.64 Absolute Eosinophils 0.26 Absolute Basophils 0.06 VBG Lactate 1.2 Sodium 141 Potassium 3.9 Chloride 104 Carbon Dioxide 27.6 Anion Gap 9.4 BUN 11 Creatinine 1.1 Est GFR (CKD-EPI 2020) 83.32 Glucose 95 Calcium 9.1 Total Bilirubin 0.8 AST 162 H ALT 143 H Alkaline Phosphatase 124 H Creatine Kinase C-Reactive Protein 1.45 H Total Protein 8.1 Albumin 3.9 06/14/22 10:50 WBC RBC Hgb Hct MCV MCH MCHC RDW Plt Count MPV Immature Gran % Neutrophils % Lymphocytes % Monocytes % Eosinophils % Basophils % Nucleated RBC % Absolute Neutrophils Absolute Lymphocytes Absolute Monocytes Absolute Eosinophils Absolute Basophils VBG Lactate Sodium Potassium Chloride Carbon Dioxide Anion Gap BUN Creatinine Est GFR (CKD-EPI 2020) Glucose Calcium Total Bilirubin AST ALT Alkaline Phosphatase Creatine Kinase 4040 H C-Reactive Protein Total Protein Albumin
--- NOTE | 2022-06-14 14:27 | ED.GENADUL_ITS ---
Discharge Plan Disposition Patient Disposition: Against Medical Advice Discharge Details Clinical Impression: Myositis of right hand Primary Care Provider: Shane Colin ED Provider: Lindy Rosas Home Meds and New Rx's Prescriptions: No Action doxycycline hyclate 100 mg capsule 100 mg PO BID Qty: 20 0RF Rx Instructions: First dose today when patient picks up medication then next dose before bed tonight 06/15. Discharge Instructions Instructions: Against Medical Advice (ED) Additional Instructions: You are leaving against her medical recommendation, you understand that you are at risk of worsening of symptoms and exam and even loss of your hand, please return at your earliest ability Discharge Data Discharge Date/Time-TO BE ENTERED AT DEPARTURE: 06/14/22 14:42 Medical Decision Making Patient has significant swelling and ulcerations to his right hand Started 2 days prior to arrival, given clinical exam findings and overall presentation, CT of his hand was ordered to evaluate for IV subcutaneous emphysema Generalized edema to muscle noted per radiology interpretation and my review case discussed with Dr Hall regarding ct findings, exam, elevated transaminases, and elevated cpk recommend admission to hospitalist and observation, zosyn, iv fluids case discussed with Dr Burns, will consult pt requests dc home as he does not have childcare available he will return at earliest ability, leaving against medical recommendation, discussed risk of loss of limb and , patient expressed understanding, fully alert and oriented that the entirety of this evaluation HPI General Date/Time Provider Initiated Documentation: 06/14/22 10:28 . HPI Narrative: This 46-year-old male presents with right hand swelling and pain with ulcerations that started 2 days prior to arrival. Denies history of similar symptoms in the past. Denies any fever or chills. Denies history of IV drug abuse or alcohol consumption. Denies fever or chills. Denies any history of immunosuppression Related Data Home Medications Medication Instructions Recorded Confirmed doxycycline hyclate 100 mg capsule 100 mg PO BID #20 caps 06/15/22 Previous Rx's Medication Instructions Recorded doxycycline hyclate 100 mg capsule 100 mg PO BID #20 caps 06/15/22 Allergies Allergy/AdvReac Type Severity Reaction Status Date / Time acetaminophen [From Percocet] Allergy Verified 06/14/22 10:24 oxycodone HCl [From Percocet] Allergy Verified 06/14/22 10:24 General Stated Complaint: Cellulitis MALIA: 3 PFSH All Active Problems (Updated 06/15/22 @ 12:10 by Ramírez Rodríguez MD) Substance abuse (Acute) Rhabdomyolysis (Acute) Cellulitis and abscess of hand (Acute) Myositis of right hand (Acute) Social History Smoking/Tobacco Use Status: Current every day Tobacco Type: cigarettes Smoking risk assessment performed?: Yes Alcohol Intake: never Drug use: Never Substance use type: does not use Do you feel safe at home: Yes Do you feel safe in your relationship?: Yes Exam Narrative Exam Narrative: 46-year-old gentleman, fully alert and oriented, right hands with blisters, eschar, erythema, and significant edema, erythema extending to distal third of forearm, distal pulses intact, no crepitus palpated Pupils equal round reactive to light and accommodation, respirations rate rhythm regular cardiovascularly, Course Vital Signs Vital signs: Vital Signs Temperature 36.2 C L 06/14/22 10:21 Pulse 69 06/14/22 10:21 Respiratory Rate 18 06/14/22 10:21 Blood Pressure 154/81 H 06/14/22 10:21 Pulse Oximetry 100 06/14/22 10:21 Temperature 36.2 C L 06/14/22 10:21 Temperature Source Tympanic 06/14/22 10:21 Pulse 66 06/14/22 13:00 Respiratory Rate 16 06/14/22 13:00 Respiratory Effort Normal, Non-Labored 06/14/22 10:24 Blood Pressure 120/87 06/14/22 13:00 Pulse Oximetry 96 06/14/22 13:00 Oxygen Delivery Method Room Air 06/14/22 13:00 Oxygen Flow Rate 0 06/14/22 13:00 Pain Level 6 06/14/22 13:00 Lab/Test Results Lab/Test Results: 06/14/22 11:20 Blood Blood Culture - Pending 06/14/22 10:50 Hand - Right Wound Culture - Pending 06/14/22 10:50 Hand - Right Gram Stain - Pending 06/14/22 10:50 Blood Blood Culture - Pending Laboratory Tests Range/Units 06/14/22 06/14/22 06/14/22 10:50 10:50 10:50 WBC (4.4-10.8) 10^3/uL 8.35 RBC (4.36-5.78) 10^6/uL 5.73 Hgb (13.5-17.5) g/dL 17.5 Hct (40.0-50.0) % 49.8 MCV (80-95) fL 87 MCH (27.0-33.0) pg 30.5 MCHC (32.0-36.0) % 35.1 RDW (11.8-14.1) % 13.3 Plt Count (130-400) 10^3/uL 247 MPV (8.0-11.0) fL 9.3 Immature Gran % 0.6 Neutrophils % 61.2 Lymphocytes % 26.7 Monocytes % 7.7 Eosinophils % 3.1 Basophils % 0.7 Nucleated RBC % (0.0-0.3) % 0.0 Absolute Neutrophils (1.2-6.7) 10^3/uL 5.11 Absolute Lymphocytes (1.2-3.4) 10^3/uL 2.23 Absolute Monocytes (0.1-0.8) 10^3/uL 0.64 Absolute Eosinophils (0.0-0.7) 10^3/uL 0.26 Absolute Basophils (0.0-0.2) 10^3/uL 0.06 VBG Lactate (0.6-1.4) mmol/L 1.2 Sodium (136-145) mmol/L 141 Potassium (3.5-5.1) mmol/L 3.9 Chloride (98-107) mmol/L 104 Carbon Dioxide (21.0-32.0) mmol/L 27.6 Anion Gap (3-11) mmol/L 9.4 BUN (7-18) mg/dL 11 Creatinine (0.70-1.30) mg/dL 1.1 Est GFR (CKD-EPI 2020) (mL/min/1.73m2) 83.32 Glucose (74-106) mg/dL 95 Calcium (8.5-10.1) mg/dL 9.1 Total Bilirubin (0.2-1.0) mg/dL 0.8 AST (15-37) U/L 162 H ALT (16-63) U/L 143 H Alkaline Phosphatase (46-116) U/L 124 H Creatine Kinase (39-308) U/L C-Reactive Protein (0.0-0.3) mg/dL 1.45 H Total Protein (6.4-8.2) g/dL 8.1 Albumin (3.4-5.0) g/dL 3.9 Range/Units 06/14/22 10:50 WBC (4.4-10.8) 10^3/uL RBC (4.36-5.78) 10^6/uL Hgb (13.5-17.5) g/dL Hct (40.0-50.0) % MCV (80-95) fL MCH (27.0-33.0) pg MCHC (32.0-36.0) % RDW (11.8-14.1) % Plt Count (130-400) 10^3/uL MPV (8.0-11.0) fL Immature Gran % Neutrophils % Lymphocytes % Monocytes % Eosinophils % Basophils % Nucleated RBC % (0.0-0.3) % Absolute Neutrophils (1.2-6.7) 10^3/uL Absolute Lymphocytes (1.2-3.4) 10^3/uL Absolute Monocytes (0.1-0.8) 10^3/uL Absolute Eosinophils (0.0-0.7) 10^3/uL Absolute Basophils (0.0-0.2) 10^3/uL VBG Lactate (0.6-1.4) mmol/L Sodium (136-145) mmol/L Potassium (3.5-5.1) mmol/L Chloride (98-107) mmol/L Carbon Dioxide (21.0-32.0) mmol/L Anion Gap (3-11) mmol/L BUN (7-18) mg/dL Creatinine (0.70-1.30) mg/dL Est GFR (CKD-EPI 2020) (mL/min/1.73m2) Glucose (74-106) mg/dL Calcium (8.5-10.1) mg/dL Total Bilirubin (0.2-1.0) mg/dL AST (15-37) U/L ALT (16-63) U/L Alkaline Phosphatase (46-116) U/L Creatine Kinase (39-308) U/L 4040 H C-Reactive Protein (0.0-0.3) mg/dL Total Protein (6.4-8.2) g/dL Albumin (3.4-5.0) g/dL
[2022-06-15 10:58] LABS: Hepatitis A Antibody IgM Negative (Negative); Hepatitis B Core Antibody Negative (Negative); Hepatitis B surface Ag Negative (Negative); Hepatitis C Ab w Rflx HCV PCR Negative (Negative)
== END 2022-06-14 14:42 | disposition left against medical advice (07) ==
PROVIDERS: Emergency Provider Physician Assistant; PCP Family Medicine
DX: M60.9 Myositis, unspecified (principal); Z53.20 Procedure and treatment not carried out because of patient's decision for unspecified reasons; L98.499 Non-pressure chronic ulcer of skin of other sites with unspecified severity; R60.1 Generalized edema; R74.01 Elevation of levels of liver transaminase levels; R79.89 Other specified abnormal findings of blood chemistry; R23.8 Other skin changes
CPT/HCPCS: 36415; 80053; 82550; 86704; 86709; 86803; 87040; 87077; 87340; 96361; 96365; 96375; 99284; 73130; 73201; 83605; 85025; 86140; 87070; 87186; 87205; 99283; J2270; J2543

== ENCOUNTER 2022-06-14 16:43 | Inpatient (IN) | payer MEDICAID, SELFPAY ==
[2022-06-14 16:49] VITALS: TEMP 36.6
[2022-06-14 16:50] VITALS: BP 139/84; PULSE 83; RESP 18; O2SAT 100
--- NOTE | 2022-06-14 18:51 | ED.GENADUL_ITS ---
Discharge Plan Disposition Patient Disposition: Admit to [facility] Condition: Stable Discharge Details Chief Complaint: GenMedical Clinical Impression: Myositis of right hand Primary Care Provider: Shane Colin ED Provider: Leland Schroeder Home Meds and New Rx's Prescriptions: No Action No Known Home Meds Medical Decision Making 46 yo male with no significant pmhx, denies substance abuse, comes in with right hand pain/swelling/redness. He states it started 3 days ago and had wounds that opened up. He was seen earlier today and had labs remarkable for cpk over [address] showing no evidence of nec fasc though did have diffuse edema of the subcutaneous tissues and muscles. He has not had fevers. He was seen by ortho and plan was to admit to medicine for iv abx and observation, possible mri. [facility] due [facility]. He returns now after he [facility]. He has erythema of the posterior hand with several areas of wouns that appear necrotis. No drainage, no crepitus, does have intact sensaiton and pulses. Possible etiologies include myositis, cellulitis, vasculatitis. Will add vanco and discuss with hospitalist about admission Differential Diagnosis Differential Diagnosis: myositis, cellulitis, vasculitis HPI General Mode of arrival: ambulatory . Date/Time Provider Initiated Documentation: 06/14/22 17:34 . Limitations to Documentation: no limitations . Information obtained by: patient . History of Present Illness 46 year old M presents to the emergency department with the chief complaint of right hand swelling/pain, described as moderate, Patient started experiencing this day(s) (3) and it has been constant. No relieving factors improve symptom (s), No exacerbating factors reported . Related Data Home Medications Medication Instructions Recorded Confirmed Unknown [No Known Home Meds] 06/14/22 06/14/22 Allergies Allergy/AdvReac Type Severity Reaction Status Date / Time acetaminophen [From Percocet] Allergy Verified 06/14/22 10:24 oxycodone HCl [From Percocet] Allergy Verified 06/14/22 10:24 General Stated Complaint: GenMedical MALIA: 3 Review of Systems All systems reviewed & are unremarkable except as noted in HPI and below Constitutional Constitutional: Denies chills, Denies fever(s) and Denies weakness Cardiovascular Cardiovascular: Denies chest pain and Denies dyspnea Respiratory Respiratory: Denies cough and Denies dyspnea Gastrointestinal Gastrointestinal: Denies abdominal pain, Denies nausea and Denies vomiting Neurologic Neurologic: Denies weakness PFSH All Active Problems (Updated 06/14/22 @ 18:57 by Leland Schroeder MD) Myositis of right hand (Acute) Social History Smoking/Tobacco Use Status: Current every day Tobacco Type: cigarettes Smoking risk assessment performed?: Yes Alcohol Intake: never Drug use: Never Substance use type: does not use Do you feel safe at home: Yes Do you feel safe in your relationship?: Yes Exam Const General: no acute distress Orientation: alert HENMT Head: normal to inspection Ears: external ears normal General nose exam: external nose normal Mouth: moist mucous membranes Eyes General: appearance normal, both eyes and all related structures Neck Neck: normal visual inspection Resp Effort & Inspection: normal respiratory effort and able to speak in complete sentences Cardio Rate: regular rate Skin Rashes: rashes noted Neuro General: patient alert and patient oriented x3 Psych Mental Status: mental status grossly normal Course Vital Signs Vital signs: Vital Signs Temperature 36.6 C 06/14/22 16:49 Temperature 36.6 C 06/14/22 16:49 Temperature Source Tympanic 06/14/22 16:49 Pulse 83 06/14/22 16:50 Respiratory Rate 18 06/14/22 16:50 Respiratory Effort Normal, Non-Labored 06/14/22 16:50 Blood Pressure 139/84 06/14/22 16:50 Pulse Oximetry 100 06/14/22 16:50 Oxygen Delivery Method Room Air 06/14/22 16:50 Oxygen Flow Rate 0 06/14/22 16:50
--- NOTE | 2022-06-14 19:14 | W.PM.HP.N ---
Date of service: 06/14/22 Time of Service: 19:14 Assessment and Plan Assessment and plan (1) Cellulitis and abscess of hand: Start date: 06/14/22 Status: Acute Assessment and plan: This 46-year-old gentleman with acute onset of right hand swelling with cellulitis and now superficial necrotizing tissue with ulcers and abscesses. CT scan does not show deep abscesses but generalized soft tissue swelling. He was started on IV vancomycin and orthopedics or surgery consultation will be continued as needed. MRI of the hand will be ordered for the morning. Patient is a full code. He denies IV drug use though his ex- states that she is aware that he has been having IV needles which were nonsterile injected into his hand when he was out of it. Patient denies this. Urine drug screen was performed. Wound cultures were also performed but blood cultures were not performed. (2) Rhabdomyolysis: Status: Acute Assessment and plan: Patient had elevated CPK which appears to be associate with his right hand process and will receive IV hydration to clear his elevated CK and renal function will be monitored daily. There is no other evidence of tissue breakdown though the ex- states that the patient has been out of it at times to where she thinks the needles were injected into him therefore he could have other episodes of unconsciousness with immobility and increase tissue trauma if this is actually true. 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 He states that he woke up with his right hand having blisters and swelling with redness and this is progressed to his present state of ulcerations and swelling over his right hand with numbness. He denies any injury but does work with his hands at odd jobs and does have some scuffing over his left hand with superficial skin breakdown. He denies any fever or chills. Evaluation in the ED did not reveal any increased WBC or temperature elevation and CT of the hand did not reveal any evidence of necrotizing fasciitis with orthopedic surgery consulted. His CK was found to be elevated over 4000 and he is receiving IV hydration with this. This most likely secondary to his tissue damage with no other history of immobilization though his ex- does state that he was out of it at [employer] and may have been immobilized then which is when she thinks that he was injected with dirty needles. He will be admitted to the medical service for IV vancomycin and wound care with cultures of the wounds taken. If fever he should have blood cultures. He has already received vancomycin loading dose of this will be dosed by pharmacy. Patient may need PT and OT as he recovers. He is a full code. The patient lives alone raising to teenage boys as a single parent and his ex- and he do have a daughter in common who is older and the ex- is concerned but has not been with him for years. Review of Systems Narrative: 13 point review of systems otherwise unrevealing or stable. PFSH All Active Problems Rhabdomyolysis (Acute) Cellulitis and abscess of hand (Acute) Myositis of right hand (Acute) Social History Smoking/Tobacco Use Status: Current every day Tobacco Type: cigarettes Smoking risk assessment performed?: Yes Alcohol Intake: never Drug use: Never Substance use type: does not use Do you feel safe at home: Yes Do you feel safe in your relationship?: Yes Meds Allergies and Home Medications Allergies Allergy/AdvReac Type Severity Reaction Status Date / Time acetaminophen [From Percocet] Allergy Verified 06/14/22 10:24 oxycodone HCl [From Percocet] Allergy Verified 06/14/22 10:24 Home Medications Medication Instructions Recorded Confirmed Type Unknown [No Known Home Meds] 06/14/22 06/14/22 History Exam Narrative Exam Narrative: General: Patient appears older than stated age, disheveled with unkempt hair and reeves, alert and oriented x3 with slight pressured speech and flattened affect. He is in no acute distress. HEENT: Normocephalic, coarsened facial features, eyes with pupils equal and reactive light symmetrically, extraocular movement tact and sclera anicteric. Oropharynx with moist mucosa and patient is edentulous. Neck: Supple without JVD. Back: Normal posture without CVA tenderness. Lungs: Fair aeration and clear to auscultation and percussion. Heart: Regular in rhythm with no murmurs or gallops appreciated. Abdomen: Normal contour, soft and nontender to palpation with no palpable hepatosplenomegaly. Genitalia/rectal: Exam deferred. Extremities: No clubbing, cyanosis or pitting edema. Right hand is swollen with dry scabbed over ulcerations over the dorsal aspect of the hand with a larger ulceration over the first and second metacarpal with and a surrounding dry bullous lesion over the aspect of the palmar thumb and thenar eminence area without discharge and slightly fluctuant. Hand is erythematous and warm to touch over the surrounding swollen area with a swelling extending onto the wrist but mostly over the hand. Hand and fingers had marked decreased range of motion with swelling. Skin: Normal color, actinic changes over sun exposed areas, warm and dry with skin changes over right hand as described. Neuro: Cranial nerves II to XII gross intact, no focalizing motor deficits and no tremor. Patient does have decree sensation of the hand with some perceived numbness. Psych: Flattened affect with pressured speech, mood normal. No abnormal thought processes. Remote and recent memory grossly intact. Patient does have some denial and avoidance behavior described by his ex- but patient appears to be adamant that he has not been using IV drugs or had them administer him with him being unaware. Results Imaging Imaging Studies: CT UPPER EXTREMITY RT W EXAM:? CT UPPER EXTREMITY RT W CLINICAL HISTORY: ? hand with bullae, diffuse edema, significant pain ? TECHNIQUE:? Imaging Protocol: Axial computed tomography images with coronal and sagittal reformatted images were created and reviewed. CONTRAST MATERIAL:? Intravenous: Omnipaque 350 Contrast volume:100 ml Contrast route:IV - COMPARISON:? No exams were available for comparison FINDINGS: Bones: The osseous structures and articular surfaces are intact. There is no evidence of fracture or dislocation. Bony alignment is satisfactory. No osteomyelitic changes are identified.? There is no evidence of joint space narrowing or cystic degeneration seen. No lytic or sclerotic lesions are identified. Soft Tissues:? Severe edema in the dorsal subcutaneous fat from the wrist through the level of the metacarpophalangeal joints.? Severe edema and swelling of the musculature of the thenar eminence is well as interosseous muscles with relative sparing of the musculature relating to the 5th finger.? The tendons appear intact.? There is no soft tissue gas or drainable abscess collection. IMPRESSION: Severe subcutaneous edema along the dorsum of the hand.? Severe muscle edema greatest at the thenar eminence. Findings called to Lindy Rosas, emergency department provider. XR HAND RT COMPLETE EXAM:? XR HAND RT COMPLETE CLINICAL HISTORY: ? edema to hand, pain.? TECHNIQUE:? 2D digital imaging was performed.? Three views. COMPARISON:? No exams were available for comparison FINDINGS: Marked soft tissue swelling involving the dorsum of the hand, thenar eminence as well as extending into the fingers, greater at the thumb and 2nd finger.? No gas collections.? No evidence of fracture.? No suspicious bony lesions are detected degenerative changes. IMPRESSION: Severe soft tissue swelling. Last Vital Signs Temp 36.6 C 06/14/22 16:49 Pulse 83 06/14/22 16:50 Resp 18 06/14/22 16:50 BP 139/84 06/14/22 16:50 Pulse Ox 100 06/14/22 16:50 Time Spent Time spent with Patient: 55-74 minutes Time was spent: preparing to see the patient(eg.review tests), obtaining and/or reviewing separately otained hiistory, ordering medications,tests, procedures, referring, communicating with other health career services representative, indepentently interpreting results and care coordination
[2022-06-14] MEDS: VANCOMYCIN 1,500 MG in Normal Saline 250 ML 166.6666 MG IVPB (19:33)
[2022-06-14] MEDS: Ketorolac 15 MG/ML VIAL IVP (19:33)
[2022-06-14] MEDS: Normal Saline 1,000 ML 1000 ML IV (19:34)
[2022-06-14 20:19] LABS: Source Nasal/Nares
[2022-06-14 20:31] VITALS: RESP 20
[2022-06-14 20:46] VITALS: BP 155/98; PULSE 74; RESP 18; TEMP 36.9; O2SAT 98
[2022-06-14 20:53] LABS: COVID-19 PCR Negative (Negative)
[2022-06-14] MEDS: Normal Saline 1,000 ML 150 ML IV (22:30)
[2022-06-14 23:02] VITALS: PULSE 83
[2022-06-14] MEDS: Heparin 5,000 UNITS/ML VIAL 5000 UNITS SC (23:43)
[2022-06-15 03:00] VITALS: BP 145/88; PULSE 89; RESP 18; TEMP 35.6; O2SAT 97
[2022-06-15] MEDS: Normal Saline 1,000 ML 150 ML IV (05:05)
[2022-06-15] MEDS: Heparin 5,000 UNITS/ML VIAL 5000 UNITS SC (05:05)
[2022-06-15 05:45] VITALS: PULSE 88
[2022-06-15 07:00] VITALS: PULSE 63
[2022-06-15 07:17] LABS: HCT 40.8 % (40.0-50.0); HGB 14.3 g/dL (13.5-17.5); MCH 30.1 pg (27.0-33.0); MCV 86 fL (80-95); MPV 10.5 fL (8.0-11.0); Platelet Count 225 10^3/uL (130-400); RBC 4.75 10^6/uL (4.36-5.78); RDW 13.2 % (11.8-14.1); RDW-SD 40.4 fL; WBC 7.47 10^3/uL (4.4-10.8)
--- NOTE | 2022-06-15 07:31 | PGE_ITS ---
Date of Service Date of service: 06/15/22 Time of Service: 11:21 Assessment and Plan Assessment and plan (1) Myositis of right hand: Status: Acute Assessment and plan: 46-year-old male with right hand edema, skin sloughing/wounds, and myositis due to unknown cause Additional information/social factors raise concern for needle?related chemical or infectious problem. Repeat lab work this morning is overwhelmingly reassuring. Has remained afebrile. I have personally reviewed his hand MRI with radiologist Dr. Raul Burns. There is diffuse thenar myositis and superficial cellulitis. No fluid collections, no necrotic muscle, and no bone involvement. Clinically, patient feels improved and relatively comfortable even off of pain medication. He demonstrates similar moderate opening closing of his hand without any distress with passive stretch. There is still significant pitting edema worse about the dorsal and palmar radial hand with separate areas of what look like healing skin abrasions. Serous drainage without any purulence. Redness possible erythema is probably improved about some of these skin lesions. Demonstrates intact flexor extension all fingers and thumb. 2+ radial pulse. Single lesion just proximal to the wrist without any additional problems ascending or traveling more proximal. Discussed with hospitalist and general surgeon Dr. Diogo Burns. Confusing case. Patient remains quite comfortable, clinically stable, and possibly improving. As best I can tell, hand must have been exposed to some trauma and/or injection. Seems to be gradually recovering from this unknown injury. Does not seem to need any orthopedic surgery for surgical debridement of infection or compartment release. Could consider skin and/or muscle biopsy from general surgeon if not improving. Patient is eager to leave the hospital as soon as possible. Recommend daily wound care: Soaks and dressing changes twice per day and 50: 50 mixture Betadine or peroxide and saline, allowed to completely dry, and wrap in nonstick absorptive bandage. Closely monitor either here or by the patient at home. Follow-up immediately if worsens or arrange follow-up if persists. Objective Last Vital Signs Temp 96.1 F L 06/15/22 03:00 Pulse 88 06/15/22 05:45 Resp 18 06/15/22 03:00 BP 145/88 H 06/15/22 03:00 Pulse Ox 97 06/15/22 03:00 Laboratory Results - last 24 hr 06/14/22 06/15/22 20:02 06:10 WBC 7.47 RBC 4.75 Hgb 14.3 D Hct 40.8 MCV 86 MCH 30.1 MCHC 35.0 RDW 13.2 Plt Count 225 MPV 10.5 COVID-19 Source Nasal/Nares SARS-CoV-2 (PCR) Negative Time Spent with Patient Time Spent with Patient: 35-49 minutes Time was spent: preparing to see the patient(eg.review tests), obtaining and/or reviewing separately otained hiistory, ordering medications,tests, procedures, referring, communicating with other health acute care clinical nurse specialist, indepentently interpreting results, counseling the patient and care coordination
[2022-06-15 07:46] LABS: ALT 85 U/L (16-63); AST 75 U/L (15-37); Albumin 2.8 g/dL (3.4-5.0); Alkaline Phosphatase 141 U/L (46-116); Anion Gap 11.8 mmol/L (3-11); BUN 16 mg/dL (7-18); Bilirubin, Total 0.5 mg/dL (0.2-1.0); C-Reactive Protein 0.84 mg/dL (0.0-0.3); CO2 22.2 mmol/L (21.0-32.0); Calcium 7.8 mg/dL (8.5-10.1); Chloride 111 mmol/L (98-107); Estimated GFR 93.42 (mL/min/1.73m2); Glucose 113 mg/dL (74-106); Magnesium 1.9 mg/dL (1.8-2.4); Potassium 3.6 mmol/L (3.5-5.1); Sodium 145 mmol/L (136-145); Total Protein 6.1 g/dL (6.4-8.2)
[2022-06-15 07:48] VITALS: BP 155/95; PULSE 57; RESP 16; TEMP 36.6; O2SAT 100
[2022-06-15 07:49] LABS: Creatine Kinase 1538 U/L (39-308)
--- NOTE | 2022-06-15 08:00 | DI.MRI_ITS ---
Exam(s) MR UPPER EXTREMITY RT WO EXAM: MR UPPER EXTREMITY RT WO CLINICAL HISTORY: swelling and ulcers right hand TECHNIQUE: Multiplanar multisequence MRI was performed without intravenous contrast. COMPARISON: CR XR HAND RT COMPLETE from 06/14/2022 FINDINGS: BONES/JOINTS: No fracture or contusion pattern. No bone lesions identified. There is normal marrow si gnal. MUSCULOTENDINOUS STRUCTURES: There is edema seen in the musculature of the hand with sparing of sever al of the hypothenar muscles. No intramuscular fluid collection is identified. The tendons appear i ntact. SOFT TISSUES: There is edema in the soft tissues and skin thickening present. No fluid collection is seen to suggest an abscess. OTHER FINDINGS: The visualized portions of the median and ulnar nerves are grossly unremarkable. IMPRESSION: 1. Edema seen in the musculature of the hand and subcutaneous tissues with skin thickening consistent with myositis and cellulitis. 2. No evidence of a focal fluid collections to suggest abscess. 3. No findings to suggest osteomyelitis. 4. Findings were discussed with Dr. Hall on the date of the examination. DATA REPOSITORY:
[2022-06-15 08:26] LABS: *AMPHETAMINES SCREEN URINE Negative (Negative); *BARBITURATES SCREEN URINE Negative (Negative); *BENZODIAZEPINES SCREEN URINE Negative (Negative); Cannabinoids THC Negative (Negative); Cocaine Screen,Urine Positive (Negative); METHADONE URINE SCREEN Negative (Negative); OPIATES URINE SCREEN Positive (Negative)
[2022-06-15 08:38] LABS: Tricyclic Antidepressants Negative (Negative)
--- NOTE | 2022-06-15 10:14 | INITIAL_ITS ---
- If Service Date Differs Date of service: 06/15/22 Time of Service: 10:14 Care Management Initial Assess REASON FOR HOSPITALIZATION:: Cellulitis, Rhabdomyolysis PAST MEDICAL HISTORY/PAST SURGICAL HISTORY:: Rhabdomyolysis (Acute). Cellulitis and abscess of hand (Acute). 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 The patient lives alone raising two teenage boys as a single parent and his ex- and he do have a daughter in common who is older and the ex- is concerned but has not been with him for years. CURRENT FUNCTIONAL STATUS:: Denies current IVD use. Per MD, advocating for discharge. ADVANCE DIRECTIVES:: None on file. Has patient been provided with info about the portal/API?: No Did the patient sign up for the portal?: No CODE STATUS:: Full Code INSURANCE COVERAGE / FINANCIAL ISSUES:: Medicaid CURRENT HOME/COMMUNITY SERVICES/EQUIPMENT:: None, currently. PRIMARY CARE PHYSICIAN:: Shane Colin POTENTIAL DISCHARGE NEEDS:: Patient may need PT and OT as he recovers. PATIENT/FAMILY EDUCATION NEEDS:: Review discharge instructions, discuss Ask Me Three. ANTICIPATED BARRIERS TO DISCHARGE:: None identified at this time. TRANSPORTATION:: Via private vehicle with friend or RCT PLAN:: Ken is being treated for right hand edema, skin sloughing/wounds, and myositis due to unknown cause. Concern for needle?related infectious problem. Ke ep n.p.o. today pending AM lab work, MRI, and clinical reevaluation for possible surgical debridement or release. May consider skin and/or muscle biopsy with Dr. Burns, per reports. Ken advocated for dicharge; Dr. Rodríguez agreed to discharge Ken per his request.
[2022-06-15 11:05] VITALS: BP 155/81; PULSE 61; RESP 17; TEMP 36.3; O2SAT 98
[2022-06-15 11:36] VITALS: PULSE 63
--- NOTE | 2022-06-15 11:49 | DSE_ITS ---
Date of service: 06/15/22 Time of Service: 11:49 DS: Diagnosis Discharge Diagnosis (1) Myositis of right hand: Status: Acute Asessment and Plan: See cellulitis. (2) Substance abuse: Status: Acute Asessment and Plan: UDS positive for cocaine and opioids He denies IV drug use. Suspicion for injection reaction / related infection is high. (3) Rhabdomyolysis: Status: Acute Asessment and Plan: CPK improved from 4040 to 1538. Good hydration stressed. (4) Cellulitis and abscess of hand: Status: Acute Asessment and Plan: Infectious vs reactive/inflammatory. He denies injecting drugs. UDS + for cocaine and opioids. No fever, elevated WBC count. CT hand: Severe subcutaneous edema along the dorsum of the hand.? Severe muscle edema greatest at the thenar eminence.. MRI: findings correlate with CT. Orthopedics consulted. Does not seem to need surgery to release either infection or compartments at this time.? Elevation, soaks and [id number] recommended. Doxycycline 100mg BID initiated. Return to ED for fever, worsening pain/swelling. 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 He states that he woke up with his right hand having blisters and swelling with redness and this is progressed to his present state of ulcerations and swelling over his right hand with numbness.? He denies any injury but does work with his hands at odd jobs and does have some scuffing over his left hand with superficial skin breakdown.? He denies any fever or chills.? Evaluation in the ED did not reveal any increased WBC or temperature elevation and CT of the hand did not reveal any evidence of necrotizing fasciitis with orthopedic surgery consulted. His CK was found to be elevated over 4000; received IV hydration for this issue. This most likely secondary to his tissue damage with no other history of immobilization though his ex- does state that he was out of it at [employer] and may have been immobilized at which time she thinks that he was injected with dirty needles. He was admitted to the medical service for IV vancomycin and wound care with cultures of the wounds taken.? The patient lives alone raising to teenage boys as a single parent. He and his ex- do have a daughter in common who is older. His ex- is concerned but has not been with him for years. See diagnosis F/U with PCP in 1 week. Home Meds and New Rx's Prescriptions: New doxycycline hyclate 100 mg capsule 100 mg PO BID Qty: 20 0RF Rx Instructions: First dose today when patient picks up medication then next dose before bed tonight 06/15. Discharge Instructions Instructions: Cellulitis (DC), Rhabdomyolysis (DC) Stand Alone Forms: Nursing Discharge Form Referrals: Shane Colin [Primary Care Provider] - 06/25/22 9:50 am Activity:: Activity as Tolerated Equipment/Supplies:: No Equipment Needed Diet:: As Tolerated Discharge Orders Discharge Orders: Discharge Order (Routine); Ordered 06/15/22 Ordered By: Ramírez Rodríguez DS: Summary Time Spent with Patient providing and/or coordinating discharge services: Greater than 30 minutes Status at Discharge Functional status at discharge: independent ambulation Overall status at discharge: patient is not back to baseline Mental Status: mental status grossly normal Speech and Movement: speech and movement normal Mood: congruent mood Affect: blunted Exam Narrative Exam Narrative: General: disheveled with unkempt hair and reeves. Conversant. NAD Lungs: Clear. Nonlabored breathing. Heart: Regular in rhythm with no murmurs. Abdomen: Soft, NT. Extremities: No pedal edema. Right hand is swollen with dry scabbed over ulcerations on the dorsal aspect of the hand with a larger ulceration over the first and second metacarpal with and a surrounding dry bullous lesion over the aspect of the palmar thumb and thenar eminence area without discharge. Hand is erythematous at the dorsal base of the thumb, warm to touch over the surrounding swollen area with a swelling extending onto the wrist but mostly over the hand. Hand and fingers had marked decreased range of motion with swelling. Skin: No rashes.. Psych: Flattened affect with pressured speech, mood normal. No abnormal thought processes. Psych Mental Status: mental status grossly normal Speech and Movement: speech and movement normal Mood: congruent mood Affect: blunted DS: Data Vitals/I&O Vitals and I&O: Vital Signs Temperature 36.3 C L 06/15/22 11:05 Temperature Source Tympanic 06/15/22 11:05 Pulse 63 06/15/22 11:36 Pulse Rhythm Regular 06/15/22 07:58 Respiratory Rate 17 06/15/22 11:05 Respiratory Effort Normal 06/15/22 07:58 Respiratory Depth Normal 06/15/22 07:58 Respiratory Pattern Normal 06/15/22 07:58 Blood Pressure 155/81 H 06/15/22 11:05 Pulse Oximetry 98 06/15/22 11:05 Oxygen Delivery Method Room Air 06/15/22 11:05 Oxygen Flow Rate 0 06/15/22 11:05 Fraction of Inspired Oxygen (FIO2) 100 06/15/22 07:48 Pain Level 7 06/15/22 11:05 Intake & Output 06/14/22 06/14/22 06/15/22 11:59 23:59 11:59 Intake Total 1250 / 1250 987.5 / 987.5 Output Total 200 / 200 Balance 1250 / 1250 787.5 / 787.5 Weight 94.347 kg Intake: IV 1250 / 1250 987.5 / 987.5 Output: Urine 200 / 200 Other: Urine Color Dark Ana Urine Appearance Clear Data Completed and Pending Labs on day of discharge: Labs from last 24 hours 06/15/22 06/15/22 06/15/22 06:10 06:10 05:20 WBC 7.47 RBC 4.75 Hgb 14.3 D Hct 40.8 MCV 86 MCH 30.1 MCHC 35.0 RDW 13.2 Plt Count 225 MPV 10.5 Sodium 145 Potassium 3.6 Chloride 111 H Carbon Dioxide 22.2 Anion Gap 11.8 H BUN 16 Creatinine 1.0 Est GFR (CKD-EPI 2020) 93.42 Glucose 113 H Calcium 7.8 L Magnesium 1.9 Total Bilirubin 0.5 AST 75 H ALT 85 H Alkaline Phosphatase 141 H Creatine Kinase 1538 H C-Reactive Protein 0.84 H Total Protein 6.1 L Albumin 2.8 L Urine Opiates Screen Positive A Urine Methadone Screen Negative Ur Barbiturates Screen Negative Ur Tricyclics Screen Negative Ur Amphetamines Screen Negative U Benzodiazepines Scrn Negative Urine Cocaine Screen Positive A Ur THC Screen Negative COVID-19 Source SARS-CoV-2 (PCR) 06/14/22 20:02 WBC RBC Hgb Hct MCV MCH MCHC RDW Plt Count MPV Sodium Potassium Chloride Carbon Dioxide Anion Gap BUN Creatinine Est GFR (CKD-EPI 2020) Glucose Calcium Magnesium Total Bilirubin AST ALT Alkaline Phosphatase Creatine Kinase C-Reactive Protein Total Protein Albumin Urine Opiates Screen Urine Methadone Screen Ur Barbiturates Screen Ur Tricyclics Screen Ur Amphetamines Screen U Benzodiazepines Scrn Urine Cocaine Screen Ur THC Screen COVID-19 Source Nasal/Nares SARS-CoV-2 (PCR) Negative 06/14/22 22:35 Finger - Right First Digit Wound Culture - Pending Preliminary micro results at discharge 06/14/22 22:35 Wound Culture - Pending Finger - Right First Digit PFSH All Active Problems (Updated 06/15/22 @ 12:10 by Ramírez Rodríguez MD) Substance abuse (Acute) Rhabdomyolysis (Acute) Cellulitis and abscess of hand (Acute) Myositis of right hand (Acute) Social History Smoking/Tobacco Use Status: Current every day Tobacco Type: cigarettes Smoking risk assessment performed?: Yes Alcohol Intake: never Drug use: Never Substance use type: does not use Do you feel safe at home: Yes Do you feel safe in your relationship?: Yes Time Spent with Patient Time Spent with Patient: <45 minutes Time was spent: preparing to see the patient(eg.review tests), ordering medications,tests, procedures, indepentently interpreting results and counseling the patient
--- NOTE | 2022-06-15 12:04 | PDOC.CMDIS ---
- If Service Date Differs Date of service: 06/15/22 Time of Service: 12:04 LACE Index Scoring Tool - Questions: Length of Stay (in days): 1 Acuity (Admit via E.D.?): Yes E.D. Visits: 4 - Answers: Total Score: 8 Risk of Readmission: Low Risk Care Management Discharge Reason for Hospitalization: Cellulitis, Rhabdomyolysis Discharge Plan: Ken will return home with new prescription for doxycycline, per MD. He will follow up with his PCP and plan of care as prescribed, per MD Rogers advocated for discharge and per his wishes, Dr. Rodríguez agreed to discharge him. Patient/Family Education Needs: Review of discharge instructions, discuss Ask Me Three.
== END 2022-06-15 12:10 | disposition home or self-care (01) | DRG 603 ==
LOC: ER 19:52 → MS 20:44
PROVIDERS: Family Medicine; Admitting Provider Family Medicine; Emergency Provider Emergency Medicine; PCP Family Medicine; Visit Provider Family Medicine
DX: L03.113 Cellulitis of right upper limb (principal); L02.511 Cutaneous abscess of right hand; M62.82 Rhabdomyolysis; M60.841 Other myositis, right hand; F17.210 Nicotine dependence, cigarettes, uncomplicated; F19.10 Other psychoactive substance abuse, uncomplicated
CPT/HCPCS: 36415; 80053; 80307; 82550; 85027; 87635; 96361; 96365; 96375; 99285; 73218; 83735; 86140; 87070; 87205; 99222; 99223; 99239; J1644; J1885

== ENCOUNTER 2022-07-09 13:03 | Outpatient (REF) | payer MEDICAID, SELFPAY ==
[2022-07-09 15:22] LABS: Abs Immature Grans 0.03 10^3/uL (0.0-0.06); Absolute Basophil Count 0.08 10^3/uL (0.0-0.2); Absolute Eosinophil Count 0.16 10^3/uL (0.0-0.7); Absolute Lymphocyte Count 2.46 10^3/uL (1.2-3.4); Absolute Monocyte Count 0.53 10^3/uL (0.1-0.8); Absolute Neutrophil Count 4.39 10^3/uL (1.2-6.7); Eosinophils % 2.1; HGB 15.7 g/dL (13.5-17.5); Immature Grans % 0.4; Lymphocytes % 32.2; MCH 29.1 pg (27.0-33.0); MCHC 33.4 % (32.0-36.0); MCV 87 fL (80-95); MPV 10.6 fL (8.0-11.0); Monocytes % 6.9; Neutrophils % 57.4; Platelet Count 259 10^3/uL (130-400); RBC 5.39 10^6/uL (4.36-5.78); RDW 13.3 % (11.8-14.1); RDW-SD 42.6 fL; WBC 7.65 10^3/uL (4.4-10.8)
[2022-07-09 15:46] LABS: ALT 24 U/L (16-63); AST 19 U/L (15-37); Albumin 4.4 g/dL (3.4-5.0); Alkaline Phosphatase 125 U/L (46-116); Anion Gap 12.2 mmol/L (3-11); BUN 13 mg/dL (7-18); Bilirubin, Total 0.4 mg/dL (0.2-1.0); C-Reactive Protein 0.23 mg/dL (0.0-0.3); CO2 23.8 mmol/L (21.0-32.0); Calcium 9.5 mg/dL (8.5-10.1); Chloride 106 mmol/L (98-107); Creatine Kinase 145 U/L (39-308); Estimated GFR 93.42 (mL/min/1.73m2); Glucose 97 mg/dL (74-106); Potassium 3.9 mmol/L (3.5-5.1); Sodium 142 mmol/L (136-145); Total Protein 7.9 g/dL (6.4-8.2)
[2022-07-09 15:50] LABS: Hemoglobin A1C 5.6 % (<5.7)
[2022-07-09 16:09] LABS: Calculated LDL 86 mg/dL (<100); Cholesterol 145 mg/dL (<200); Ferritin 231 ng/mL (26-388); HDL Cholesterol 46 mg/dL (40-60); Triglyceride 65 mg/dL (<150)
[2022-07-10 10:05] LABS: Hepatitis C Ab w Rflx HCV PCR Negative (Negative)
[2022-07-10 10:20] LABS: Hepatitis B Surface Ag Negative (Negative)
[2022-07-10 10:39] LABS: HIV-1/2 Ag & Ab Screen Negative (Negative)
== END 2022-07-09 13:04 | disposition home or self-care (01) ==
LOC: NCHCN 13:03
PROVIDERS: PCP Family Medicine; Visit Provider Family Medicine
DX: L08.89 Other specified local infections of the skin and subcutaneous tissue (principal); R74.8 Abnormal levels of other serum enzymes; Z11.59 Encounter for screening for other viral diseases; Z11.4 Encounter for screening for human immunodeficiency virus [HIV]; Z13.1 Encounter for screening for diabetes mellitus; M62.82 Rhabdomyolysis; Z13.220 Encounter for screening for lipoid disorders; Z00.00 Encounter for general adult medical examination without abnormal findings
CPT/HCPCS: 80053; 80061; 82550; 86803; 87340; 87389; 82728; 83036; 85025; 86140